=== PATIENT | female | born 1935 | race Caucasian/White ===

== ENCOUNTER 2020-12-12 20:34 | Emergency (ER) | payer MEDICARE ==
[~2020-12-12] VITALS: Ht 157.4 cm; Wt 54.9 kg
[~2020-12-12 20:34] MED LIST: AMOXICILLIN500 M2 PO; SYNTHROID,LEVO75 MCG PO; SYNTHROID0.1 MG PO; VIBRAMYCIN100 MG PO
== END 2020-12-12 22:15 | disposition home or self-care (01) ==
LOC: ED 20:34
DX: T78.49XA Other allergy, initial encounter (principal); E07.9 Disorder of thyroid, unspecified; Z88.8 Allergy status to other drugs, medicaments and biological substances; Z79.2 Long term (current) use of antibiotics; Z79.899 Other long term (current) drug therapy; Z90.711 Acquired absence of uterus with remaining cervical stump; Z85.118 Personal history of other malignant neoplasm of bronchus and lung; X58.XXXA Exposure to other specified factors, initial encounter

== ENCOUNTER 2020-12-16 01:10 | Emergency (ER) | payer MEDICARE ==
[~2020-12-16] VITALS: Ht 157.4 cm; Wt 55.3 kg
[2020-12-16] MEDS ORDERED: PEPCID20 MG PO (01:59)
[2020-12-16] MEDS ORDERED: MEDROL DOSEPAK4 MG PO (01:59)
[2020-12-16] MEDS ORDERED: ALLERGY RELIEF25 MG PO (01:59)
== END 2020-12-16 03:23 | disposition home or self-care (01) ==
LOC: ED 01:10
DX: T78.49XA Other allergy, initial encounter (principal); L50.9 Urticaria, unspecified; X58.XXXA Exposure to other specified factors, initial encounter

== ENCOUNTER 2021-08-12 22:24 | Emergency (ER) | payer MEDICARE ==
[~2021-08-12] VITALS: Ht 165.1 cm; Wt 72.6 kg
[~2021-08-12 22:24] MED LIST changes: +ALLERGY RELIEF25 MG PO; +MEDROL DOSEPAK4 MG PO; +PEPCID20 MG PO
[2021-08-13] MEDS ORDERED: MEDROL DOSEPAK4 MG PO (01:37)
== END 2021-08-13 01:59 | disposition home or self-care (01) ==
LOC: ED 22:24
DX: L50.8 Other urticaria (principal); Z90.710 Acquired absence of both cervix and uterus; Z79.899 Other long term (current) drug therapy; Z88.1 Allergy status to other antibiotic agents

== ENCOUNTER 2021-10-27 09:27 | Emergency (ER) | payer MEDICARE ==
[~2021-10-27] VITALS: Ht 157.4 cm; Wt 53.5 kg
[2021-10-27] MEDS ORDERED: ANTIFUNGAL113 GM T (11:12)
== END 2021-10-27 11:17 | disposition home or self-care (01) ==
LOC: ED 09:27
DX: R21 Rash and other nonspecific skin eruption (principal); Z88.8 Allergy status to other drugs, medicaments and biological substances; Z79.899 Other long term (current) drug therapy

== ENCOUNTER → 2021-10-31 | Outpatient (CLI) | payer MEDICARE ==
[~2021-10-31] MED LIST changes: +ANTIFUNGAL113 GM T
== END ==
LOC: WOUNDCARE 00:32
PROVIDERS: ATTEND Surgery
DX: D72.12 Drug rash with eosinophilia and systemic symptoms syndrome (principal); Z90.710 Acquired absence of both cervix and uterus; Z98.890 Other specified postprocedural states; Z79.899 Other long term (current) drug therapy

== ENCOUNTER 2021-11-17 08:41 | Emergency (ER) | payer MEDICARE ==
[~2021-11-17] VITALS: Wt 68.0 kg
[2021-11-17] MEDS ORDERED: ALA-CORT28.4 GM T (09:03)
== END 2021-11-17 09:29 | disposition home or self-care (01) ==
LOC: ED 08:41
DX: R21 Rash and other nonspecific skin eruption (principal)

== ENCOUNTER → 2023-09-23 | Outpatient (CLI) | payer MEDICARE ==
[~2023-09-23] MED LIST changes: +ALA-CORT28.4 GM T
== END | disposition home or self-care (01) ==
LOC: RESCLI 00:51
PROVIDERS: ATTEND Family Medicine
DX: J44.9 Chronic obstructive pulmonary disease, unspecified (principal); E03.9 Hypothyroidism, unspecified; E78.5 Hyperlipidemia, unspecified; I10 Essential (primary) hypertension; Z79.899 Other long term (current) drug therapy; Z88.8 Allergy status to other drugs, medicaments and biological substances

== ENCOUNTER 2023-10-08 18:08 | Emergency (ER) | payer MEDICARE ==
[~2023-10-08] VITALS: Ht 165.1 cm; Wt 68.0 kg
[2023-10-08] MEDS ORDERED: DEXAMETHASONE6 MG PO (19:16)
== END 2023-10-08 20:15 | disposition home or self-care (01) ==
LOC: ED 18:08
DX: U07.1 COVID-19 (principal); J44.9 Chronic obstructive pulmonary disease, unspecified; Z88.8 Allergy status to other drugs, medicaments and biological substances; Z90.710 Acquired absence of both cervix and uterus; Z98.890 Other specified postprocedural states